=== PATIENT | female | born 1935 | race Caucasian/White ===

== ENCOUNTER 2017-10-12 20:47 | Outpatient (CLI) | payer MEDICARE ==
[~2017-10-12] VITALS: Ht 162.6 cm; Wt 73.0 kg
--- NOTE | ~2017-10-12 | OP ---
PATIENT NAME: TATYANA HAQUE MEDICAL RECORD: [id number] :33 LOCATION:D.[facility]I ADMISSION DATE: SURGEON: CUONG PAUL MD DATE OF OPERATION: 10/12/2017 PROCEDURES: 1. Left heart catheterization. 2. Selective coronary angiography. 3. Left ventriculogram. INDICATION: ST segment elevation myocardial infarction. PROCEDURE IN DETAIL: After informed consent was obtained and after a detailed description of risks, benefits as well as alternative therapies, the patient elected to proceed with angiogram and heart catheterization. The right femoral area was prepped and draped in normal sterile fashion. The right femoral artery was cannulated via modified Seldinger technique with placement of 6-Uzbek sheath. All catheters exchanged through this sheath. FINDINGS: Left ventriculogram was performed in standard 30-degree PURVIS view, reveals good cardiac wall motion throughout all segments. Overall ejection fraction estimated 60%. SELECTIVE CORONARY ANGIOGRAPHY: Left main, left anterior descending, left circumflex, and right coronary are all smooth-walled vessels with no angiographic evidence of coronary artery disease. OVERALL IMPRESSION: 1. No angiographic evidence of coronary artery disease. 2. Normal left heart pressures. 3. Normal left ventricular systolic function. ST segment elevation myocardial infarction was most likely from the chronic atrial fibrillation and primary thrombotic event that was resolved with heparin and Plavix given in the Emergency Room. At this time, she has smooth-walled vessels with no angiographic evidence of coronary artery disease. Continue antithrombin therapy for the atrial fibrillation. TRANSINT:[id number] Voice Confirmation ID: [id number] DOCUMENT ID: [id number] CUONG PAUL MD at 1711 CC: [id number] DICTATION DATE: 10/12/172140 COMMERCIAL REAL ESTATE ASSOCIATE: 10/12/17 [address] [facility] 10/13/17 [place] [address]
--- NOTE | ~2017-10-12 | HEMODYNAMI ---
PATIENT:TATYANA HAQUE MEDICAL RECORD: [id number] : 33 LOCATION:[facility] ADMISSION DATE: 10/12/17 Generatedon:10/12/201722:27 Patient name: TATYANA HAQUE Patient #: [id number] SSN: : 1935 Date of study: 10/12/2017 Page: Of Hemodynamic Procedure Report Patient Data Patient Demographics Procedure consent was obtained First Name: TATYANA Gender: Female Last Name: SHABNAM : 1935 Patient #: [id number] Age: 81 year(s) Race: Unknown Additional ID: [id number] Contact details Address: [address] [place] [address] State: [place] City: [facility] Zip code: [address] Past Medical History Allergies Allergen Reaction Date Comments Reported Other allergy 10/12/2017 ASA Admission Admission Data Admission Date: 10/12/2017 Admission Time: 19:54 Procedure Procedure Types Cath Procedure Diagnostic Procedure LHC LHC w/Coronaries Procedure Description Procedure Date Procedure Date: 10/12/2017 Procedure Start Time: 21:32 Procedure End Time: 21:41 Procedure Staff Name Function David Murphy MD Performing Physician Hayde Chew RT Monitor Julia Eubanks RT Scrub Nancy Marie RN Nurse Procedure Data Cath Procedure Fluoroscopy Diagnostic fluoroscopy Total fluoroscopy Time: 0.9 time: 0.9 min min Diagnostic fluoroscopy Total fluoroscopy dose: 335 dose: 335 mGy mGy Contrast Material Contrast Material Type Amount (ml) Isovue 300 45 Entry Location Entry Primary Successful Side Size Upsize Upsize Entry Closure Succes sful Closure Location (Fr) 1 (Fr) 2 (Fr) Remarks Device Remarks Femoral Right 6 Fr Exoseal artery Short Estimated blood loss: 10 ml Diagnostic catheters Device Type Used For End Catheter Placement MULTIPACK Pigtail 5 Fr Procedure catheter MULTIPACK JL 4.0 5Fr Procedure catheter MULTIPACK 3DRC 5Fr Procedure catheter Procedure Complications No complications Procedure Medications Medication Administration Route Dosage Oxygen NC 2 l/min Lidocaine 2% added to field 20 Heparin Flush Bag added to field 2 bags (1000units/500ml NS) 0.9% NaCl I.V. 100 ml/hr Versed I.V. 1 mg Fentanyl I.V. 50 mcg Lopressor I.V. 5 mg Versed I.V. 1 mg Fentanyl I.V. 50 mcg Hemodynamics Rest Heart Rate: 99 (bpm) Snapshots Pre Cath Intra NCS Post Cath Vital Signs Time Heart Resp SPO2 etCO2 NIBP (mmHg) Rhythm Pain Sedation Rate (ipm) (%) (mmHg) Status Level (bpm) 21:27:00 115 17 94 50.5 135/80(97) A-Fib 0 (11) 10(A) , No pain 21:31:44 111 12 95 29.7 128/89(109) A-Fib 0 (11) 10(A) , No pain 21:36:29 118 21 94 37.9 138/85(97) A-Fib 0 (11) 9(A) , No pain 21:41:10 109 19 95 38.6 124/76(96) A-Fib 0 (11) 10(A) , No pain Medications Time Medication Route Dose Verified Delivered Reason Notes Effe ctiveness by by 21:25:35 Oxygen NC 2 David Myriamie used for l/min Katherine Marie RN procedure 21:25:42 Lidocaine 2% added 20ml David Hernandez for local to vial Katherine Murphy MD anesthetic field 21:25:48 Heparin Flush added 2 David David used for Bag to bags Katherine Murphy MD procedure (1000units/500ml field NS) 21:25:56 0.9% NaCl I.V. 100 David Cruz Per ml/hr Katherine Marie RN physician 21:29:07 Versed I.V. 1 mg David Cruz for Katherine Marie RN sedation 21:29:12 Fentanyl I.V. 50 David Cruz for mcg Katherine Marie RN sedation 21:32:24 Versed I.V. 1 mg David Cruz for Katherine Marie RN sedation 21:32:27 Fentanyl I.V. 50 David Cruz for mcg Katherine Marie RN sedation 21:37:48 Lopressor I.V. 5 mg David Cruz Per Katherine Marie RN physician Procedure Log Time Note 21:11:01 Buffie Marie RN sent for patient. Start room use. 21:11:03 Time tracking: Regular hours (M-F 7:00 - 5:00) 21:11:09 Plan of Care:Hemodynamics will remain stable., Cardiac rhythm will remain stable., Comfort level will be maintained., Respiratory function will remain adequate., Patient/ family verbilizes understanding of procedure., Procedure tolerated without complication., Recovers from procedure without complications.. 21:16:42 Patient received from ED to CCL 1 Alert and oriented. Tansferred to table in Supine position. 21:16:44 Warm blankets applied, and avani hugger turned on for patient comfort. 21:16:44 Correct patient and procedure confirmed by team. 21:16:46 Signed procedure consent form obtained from patient. 21:16:47 ECG and BP/O2 sat monitors applied to patient. 21:25:35 Oxygen 2 l/min NC was administered by Nancy Marie RN; used for procedure; 21:25:42 Lidocaine 2% 20ml vial added to field was administered by David Murphy MD; for local anesthetic; 21:25:48 Heparin Flush Bag (1000units/500ml NS) 2 bags added to field was administered by David Murphy MD; used for procedure; 21:25:56 0.9% NaCl 100 ml/hr I.V. was administered by Nancy Marie RN; Per physician; 21:26:02 Vital chart was started 21:26:46 Baseline sample Acquired. 21:26:56 Full Disclosure recording started 21:27:02 H&P Date Dictated: 10/12/2017 Emergent; H&P N/A. 21:27:05 Pre-procedure instructions explained to patient. 21:27:08 Family in waiting room. 21:27:15 Patient NPO since Lunch. 21:27:30 Patient allergic to Other allergyASA 21:27:34 Is the patient allergic to Iodine/contrast media? No. 21:27:36 Was the patient premedicated? Yes 21:27:37 Is patient on blood thinner?Yes 21:27:40 ACC The patient was administered the following blood thiners within the last 24 hours: ACCPlavix 21:27:43 Patient diabetic? No. 21:27:44 If diabetic: On Metformin? No 21:27:49 Snore? Yes 21:27:50 Sleep apnea? No 21:27:57 Dentures? Yes tight 21:28:15 Patient pain scale 3/10 ?. 21:28:24 IV patent on arrival in right hand, right forearm with 0.9% NaCl at [facility] 21:28:28 Lab results completed and on chart. 21:28:32 Right groin area was prepped with chlora-prep and draped in sterile fashion 21::34 Alarms reviewed by RKate N. ::34 Sharps counted by scrub and verified by R.N. 21::35 Physician paged 21::37 Physician arrived 21::44 --------ALL STOP TIME OUT------ ::46 Final Timeout: patient, procedure, and site verified with staff and physician. All members of the team are in agreement. 21:28:54 Right groin site verified by team. 21:29:00 Sedation plan: IV Moderate Sedation Medication:Versed, Fentanyl 21:29:07 Versed 1 mg I.V. was administered by Nancy Marie RN; for sedation; 21:29:09 Use device set Femoral Dx 21:29:12 Fentanyl 50 mcg I.V. was administered by Nancy Marie RN; for sedation; 21:32:24 Versed 1 mg I.V. was administered by Nancy Marie RN; for sedation; 21:32:24 Procedure started. 21:32:27 Fentanyl 50 mcg I.V. was administered by Nancy Marie RN; for sedation; :32:34 Local anesthetic to right femoral artery with Lidocaine 2% by David Murphy MD.INITIAL ACCESS ONLY 21:32:49 A 6 Fr Short sheath was inserted into the Right Femoral artery 21:32:56 J wire advanced. 21:33:01 ACIST Syringe (79611) opened to sterile field. 21:33:01 Bag Decanter () opened to sterile field. 21:33:02 Medline Cath Pack ([id number]) opened to sterile field. 21:33:02 DIAGNOSTIC WIRE .035 260cm J wire (081067) opened to sterile field. 21:33:04 ACIST Manifold (12271) opened to sterile field. 21:33:04 DIAGNOSTIC Multipack 5Fr catheter set (IP8375) opened to sterile field. 21:33:05 ACIST Hand Control (17072) opened to sterile field. 21:33:06 Tegaderm 4 x 4 (1626W) opened to sterile field. 21:33:07 PERCUTANEOUS ENTRY 19GA needle opened to sterile field. 21:33:10 SHEATH 6Fr Prelude ([id number]) opened to sterile field. 21:33:11 INFLATOR Merit BasixCompak (PU3416) opened to sterile field. 21:33:11 CHOICE PT Extra Support 182cm wire ([id number]) opened to sterile field. 21:33:29 A MULTIPACK Pigtail 5 Fr catheter was advanced over the wire and used for Procedure. 21:33:33 LV gram done using PURVIS 21:33:37 Catheter removed. 21:34:04 A MULTIPACK JL 4.0 5Fr catheter was advanced over the wire and used for Procedure. 21:34:57 Catheter removed. 21:35:28 A MULTIPACK 3DRC 5Fr catheter was advanced over the wire and used for Procedure. 21:35:33 Catheter removed. 21:35:46 EXOSEAL 6Fr (EX600) opened to sterile field. 21:36:27 Sheath removed intact; hemostasis achieved with Exoseal to the Right Femoral artery. 21:37:48 Lopressor 5 mg I.V. was administered by Nancy Marie RN; Per physician; 21:39:48 Procedure ended.(Physican Out) 21:40:08 Fluoroscopy time 00.90 minutes. 21:40:14 Fluoroscopy dose: 335 mGy 21:40:14 Flurop Dose total: 335 21:40:17 Contrast amount:Isovue 300 45ml. 21:40:19 Sharps counted by scrub and verified by R.N. 21:40:23 Insertion/operative site no bleeding no hematoma. 21:40:27 Post right femoral artery:stable 21:40:29 Post Procedure Pulses reassessed and unchanged 21:40:32 Post-procedure physical assessment completed. ASA score P 2 - A patient with mild systemic disease as per David Murphy MD. 21:40:37 Post procedure rhythm: unchanged. 21:40:40 Estimated blood loss: 10 ml 21:40:43 Post procedure instruction explained to patient.Patient verbalizes understanding. 21:40:51 Procedure and supply charges have been captured, reviewed, submitted and are correct. 21:41:12 Procedure Complication : No complications 21:41:16 Vital chart was stopped 21:41:16 See physician's report for complete and final results. 21:41:20 Report given to Pre/Post Procedure Room. 21:41:27 Patient transfered to ICU with Bed. 21:41:38 Procedure ended. 21:41:38 Full Disclosure recording stopped 22:02:10 Pt with warmed blankets and bear hugger in place for comfort. rt groin dressing c/d/i, no bleeding or hematoma noted. awaiting bed assignment. atrial fib on the cm. will cont to monitor. 22:19:51 pt cont with rt groin dressing c/d/i no bleeding or hematoma noted. pt in no distress. sips of water tolerated without difficulty. pt will be transfered via bed to cv icu 1. Device Usage Item Name Manufacture Quantity Catalog Number Hospital Part Current Mini mal Lot# / Charge Number Stock Stock Serial# Code ACIST Acist 1 51716 035930 240329 315776 20 Syringe Medical (65451) Systems Inc Bag Decanter Microtek 1 2001S 908810 21874 479155 5 (2001S) Medical Inc. Medline Cath Cardinal 1 [id number] 082458 37100 735005 5 Pack Health ([id number]) DIAGNOSTIC [facility] [place] 1 429391 252645 437830 422457 30 WIRE .035 260cm J wire (981389) ACIST Acist 1 44486 607974 534972 159921 5 Manifold Medical (63980) Systems Inc DIAGNOSTIC Cardinal 1 HQ5999 499415 21151 739306 30 Multipack Health 5Fr catheter set (EN6006) ACIST Hand Acist 1 45816 206232 473596 107746 5 Control Medical (36343) Systems Inc Tegaderm 4 x 3M 1 1626W 319441 837255 254923 5 4 (1626W) PERCUTANEOUS Cook Medical 1 G50625 662656 617936 5 ENTRY 19GA needle SHEATH 6Fr Merit 1 [id number] 590878 263408 874734 5 Prelude Medical ([id number]) INFLATOR Merit 1 CV0909 473807 349250 622536 15 [facility] Medical BasixCompak (YH9619) CHOICE PT [place] 1 [id number] 205120 877198 438740 5 Extra Scientific Support 182cm wire ([id number]) MULTIPACK Cardinal 1 187155 5 Pigtail 5 Fr Health catheter MULTIPACK JL Cardinal 1 058410 5 4.0 5Fr Health catheter MULTIPACK Cardinal 1 698504 5 3DRC 5Fr Health catheter EXOSEAL 6Fr Cardinal 1 EX600 859803 700402 277249 10 (EX600) Health Signature Audit [place] Stage Time Signature Unsigned Intra-Procedure 10/12/2017 Hayde Chew 10:27:05 PM RT(R) Signatures Monitor : Hayde Chew Signature : RT Date : Time : [address] [address]
--- NOTE | ~2017-10-12 | HP ---
PATIENT: TATYANA ANDREWS MEDICAL RECORD: [id number] ACCOUNT: [id number] LOCATION:[facility] : 33 ADMISSION DATE: 10/13/17 HISTORY AND PHYSICAL EXAMINATION ADMITTING DIAGNOSES: 1. Acute inferior myocardial infarction. 2. Coronary artery disease. 3. Atrial fibrillation, chronic. HISTORY OF PRESENT ILLNESS: Ms. Andrews has a known history of ischemic heart disease. She has a history of atrial fibrillation followed by Dr. Landon, for which she is on Eliquis and atenolol. She presents with chest pain. She was actually at the hospital visiting a friend, began having chest pain. The chest pain worsened and she came to the ER. Her EKG is compatible with an acute inferior myocardial infarction. REVIEW OF SYSTEMS: The patient reports easy bruising but reports no swollen glands. The patient reports no fever, no night sweats, no significant weight gain, no significant weight loss. No significant exercise tolerance. The patient reports no dry eyes, no irritation, no vision change. Patient reports no difficulty hearing and no ear pain. Patient reports no frequent nose bleeds or nose and sinus problems. Patient reports on arm pain on exertion. No shortness of breath while lying down. No history of heart murmur. Patient reports no cough, no wheezing or coughing up blood. Patient reports no abdominal pain, no vomiting. Normal appetite. No diarrhea and not vomiting blood. No nausea and no constipation. Patient reports no incontinence. No difficulty urinating. No hematuria. No increased frequency. Patient reports no muscle aches. No weakness, no arthralgias, no back pain. No swelling of the extremities. Patient reports no abnormal mole, no jaundice, no rashes. Reports no loss of consciousness. No weakness and no numbness. No seizures, dizziness, or headaches. The patient reports no depression, no sleep disturbance, feeling safe in a relationship and no alcohol abuse. Patient reports on fatigue. Reports no runny nose or sinus pressure. No itching, no hives, and no frequent sneezing. PHYSICAL EXAMINATION: GENERAL APPEARANCE: Well-nourished, well-developed, appears stated age. Level of distress, comfortable. PSYCHIATRIC: Mental status, alert, normal affect. Orientation, oriented to time, place and person. EYES: Lids and conjunctiva, noninjected. No discharge, no pallor. ENT: Lips, teeth, gums, normal dentition. Oropharynx, no cyanosis, no pallor. NECK: Carotid arteries, bilateral normal upstroke, no bruits, no thrills. JUGULAR VEINS: No jugular venous pressure or distention. CERVICAL LYMPH NODES: Nontender, nonenlarged. THYROID: Not enlarged. Nontender. No nodules. LUNGS: Respiratory effort, unlabored. CHEST: Normal curvature. No thoracic deformity. No chest wall tenderness. Percussion, resonant. Auscultation, clear. No wheezes, no rales, no rhonchi. CARDIOVASCULAR: Precordial exam, nondisplaced. No heaves or pericardial thrills. Rate and rhythm, regular. Heart sounds, normal S1, normal S2. No S3, no gallop, no rub. Systolic murmur, not heard. Diastolic murmur, not heard. EXTREMITIES: No cyanosis, no edema. Peripheral pulses, full and equal in all extremities, except as noted. No bruits appreciated. HISTORY AND PHYSICAL [id number] TATYANA ANDREWS ABDOMEN: Soft, nondistended. Normal aorta. No bruit. Nontender. No masses. Liver, nontender, no hepatomegaly. Spleen, nontender, no splenomegaly. MUSCULOSKELETAL: No joint tenderness. No joint swelling. No erythema. NEUROLOGICAL: Normal gait, normal strength, normal tone. SKIN: Warm and dry. IMPRESSION: Acute inferior myocardial infarction. We will proceed with cardiac catheterization. Further care depends upon findings of the catheterization. TRANSINT:[id number] Voice Confirmation ID: [id number] DOCUMENT ID: [id number] CUONG PAUL MD at 1711 CC: [id number] DICTATION DATE: 10/12/172048 SEPARATOR OPERATOR: 10/12/172142 [facility] 10/13/17 [place] [id number]
[2017-10-12 20:26] LABS: BASOPHILS 0.5 % (0-2); EOSINOPHILS 0.9 % (0-7); HEMATOCRIT 41.1 % (36.0-48.0); HEMOGLOBIN 14.9 g/dL (12-16); IMMATURE GRANULOCYTES 0.2 % (0-5); LYMPHOCYTES 36.8 % (15-50); MCH 37.4 pg (26.0-34.0); MCHC 36.3 g/dL (31.0-37.0); MCV 103.3 fL (80.0-100.0); MONOCYTES 7.3 % (2-11); NEUTROPHILS 54.3 % (40-80); RBC 3.98 10x6/uL (4.00-5.40); RDW 21.8 % (11.5-14.5); WBC 5.5 10x3/uL (4.8-10.8)
[2017-10-12 20:39] LABS: INR 1.78 (0.85-1.17); PROTIME 20.1 SECONDS (11.6-15.0)
[~2017-10-12 20:47] MED LIST: CALCIUM CITRATE1 TAB PO; MULTIPLE VITAMI1 TA1 PO; OCTIVITE PO; SYSTANE 0.3-0.4%5 ML EACH EYE; TENORMIN25 MG PO; VITAMIN D31000 UNI2 PO
[2017-10-12 20:48] LABS: APTT 37.5 SECONDS (22.8-39.4)
[2017-10-12 20:55] LABS: ALBUMIN 3.8 g/dL (3.4-5.0); ALKALINE PHOSPHATASE 38 U/L (46-116); ALT (SGPT) 24 U/L (10-68); BILIRUBIN - TOTAL 1.06 mg/dL (0.2-1.3); CALC OSMOLALITY 270 mosm/kg (275-300); CALCIUM 9.3 mg/dL (8.5-10.1); CARBON DIOXIDE 25.6 mmol/L (21.0-32.0); CHLORIDE - SERUM 94 mmol/L (98-107); CREATININE - SERUM 1.1 mg/dL (0.6-1.3); POTASSIUM - SERUM 3.6 mmol/L (3.5-5.1); PROTEIN - SERUM 7.7 g/dL (6.4-8.2); SODIUM 132 mmol/L (136-145); UREA NITROGEN 19 mg/dL (7-18); eGFR NON AFRICAN AMERICAN 50 mL/min (90-120)
[2017-10-12 20:59] LABS: GLUCOSE 169 mg/dL (74-106)
[2017-10-12 21:00] LABS: CHOL - HDL RATIO 3.2 ratio (2.3-4.1); CHOLESTEROL, TOTAL 105 mg/dL (0-200); CKMB 2.4 U/L (0.0-3.6); CREATINE KINASE 113 UL (21-215); HDL CHOLESTEROL 33 mg/dL (32-96); LDL CHOLESTEROL 49 mg/dL (0-100); LDL-HDL RATIO 1.5 ratio (1.5-3.5); TRIGLYCERIDE 115 mg/dL (30-200); TROPONIN-I 0.027 ng/mL (0.000-0.060)
[2017-10-12 21:05] LABS: PLATELET COUNT 115 10x3/uL (130-400)
[2017-10-12 23:00] VITALS: BP 142/78
[2017-10-12] MEDS ORDERED: HYDROCHLOROTH12.5 M1 (23:23)
[2017-10-13] VITALS (13 sets, daily range): BP systolic 110–145; BP diastolic 43–88; Ht 162.6 cm; Wt 73.0 kg
[2017-10-13 01:36] LABS: APPEARANCE CLEAR (CLEAR); BILIRUBIN NEGATIVE (NEGATIVE); COLOR YELLOW (YELLOW); GLUCOSE NEGATIVE (NEGATIVE); KETONE NEGATIVE (NEGATIVE); NITRITE NEGATIVE (NEGATIVE); PROTEIN NEGATIVE (NEGATIVE); SPECIFIC GRAVITY 1.015 (1.005-1.020); UROBILINOGEN NORMAL (NORMAL)
[2017-10-13 01:37] LABS: BACTERIA FEW /hpf (NONE SEEN); EPITHELIAL CELLS 0-5 /hpf (0-5); RED CELLS - URINE 0-5 /hpf (0-5); WHITE CELLS - URINE 0-5 /hpf (0-5)
[2017-10-13] MEDS ORDERED: BAYER CHEWABLE81 MG PO (10:21)
== END 2017-10-13 13:06 | disposition home or self-care (01) ==
LOC: D.CVICU 20:47 → EDSTATUS 22:30 → D.CVICU 22:31 → D.CATH 22:31 → D.CVICU 10-13 12:23
PROVIDERS: Family Medicine
DX: I21.19 ST elevation (STEMI) myocardial infarction involving other coronary artery of inferior wall (principal); I48.2 Chronic atrial fibrillation; I25.10 Atherosclerotic heart disease of native coronary artery without angina pectoris; Z01.812 Encounter for preprocedural laboratory examination

== ENCOUNTER 2019-02-04 19:34 | Inpatient (IN) | payer MEDICARE ==
[~2019-02-04] VITALS: Ht 162.6 cm; Wt 79.5 kg
[~2019-02-04 19:34] MED LIST changes: +BAYER CHEWABLE81 MG PO; +HYDROCHLOROTH12.5 M1
[2019-02-04] MEDS ORDERED: ELIQUIS5 MG PO (19:45)
[2019-02-04] MEDS ORDERED: AMIODARONE HCL200 MG PO (19:45)
[2019-02-04] MEDS ORDERED: CALCIUM 500 +1 EAC3 PO (19:46)
[2019-02-04] MEDS ORDERED: GLUCOSAMINE HC500 MG PO (19:46)
[2019-02-04] MEDS ORDERED: TESSALON PERLE100 MG PO (19:46)
[2019-02-04] MEDS ORDERED: HYDROXYUREA500 MG PO (19:48)
[2019-02-04] MEDS ORDERED: MOBIC7.5 MG PO (19:48)
[2019-02-04] MEDS ORDERED: [UNRECOGNIZED DRUG - OTHER] PO (19:48)
[2019-02-04] MEDS ORDERED: KLOR-CON 1010 MEQ PO (19:49)
[2019-02-04] MEDS ORDERED: TOPROL XL100 MG PO (19:49)
[2019-02-04] MEDS ORDERED: ZOFRAN ODT4 MG/UDTAB PO (19:49)
[2019-02-04 20:27] LABS: BASOPHILS 0.1 % (0-2); EOSINOPHILS 0.2 % (0-7); HEMATOCRIT 36.5 % (36.0-48.0); HEMOGLOBIN 13.3 g/dL (12-16); IMMATURE GRANULOCYTES 0.5 % (0-5); LYMPHOCYTES 7.3 % (15-50); MCH 35.9 pg (26.0-34.0); MCHC 36.4 g/dL (31.0-37.0); MCV 98.6 fL (80.0-100.0); MEAN PLATELET VOLUME 9.9 fL (7.4-10.4); MONOCYTES 7.4 % (2-11); NEUTROPHILS 84.5 % (40-80); PLATELET COUNT 121 10x3/uL (130-400); RDW 12.3 % (11.5-14.5); WBC 18.4 10x3/uL (4.8-10.8)
[2019-02-04 20:30] VITALS: BP 119/46
[2019-02-04 20:50] LABS: ALBUMIN 2.8 g/dL (3.4-5.0); ANION GAP 11.9 mmol/L (8-16); BILIRUBIN - TOTAL 0.8 mg/dL (0.2-1.3); CALCIUM 8.2 mg/dL (8.5-10.1); CARBON DIOXIDE 26.6 mmol/L (21.0-32.0); CREATININE - SERUM 1.8 mg/dL (0.6-1.3); POTASSIUM - SERUM 5.5 mmol/L (3.5-5.1); PROTEIN - SERUM 6.1 g/dL (6.4-8.2)
[2019-02-04 20:51] LABS: TROPONIN-I 0.027 ng/mL (0.000-0.060)
[2019-02-04 22:08] VITALS: BP 140/43
[2019-02-04 22:30] VITALS: BP 130/43
--- NOTE | 2019-02-05 00:56 | NUR ---
RECEIVED PT TO FLOOR FROM ER VIA STRETCHER. PT ORIENTED BUT KEPT FALLING ASLEEP DURING ADMISSION. HISTORY AND HOME MEDS REVIEWED. PT WAS GIVEN KAYEXELATE IN ER. HAD ACCIDENT IN BED OF LOOSE WATERY STOOL. ASSISTED UP TO BEDSIDE COMMODE AND CHANGED BED AND GOWN. TELEMETRY IS SR. COMPLETE ASSESSMENT PER FLOW-SHEET. RESERVE LEFT ARM DUE TO HISTORY OF MASTECTOMY AND LYMPNODE REMOVAL. NO OTHER NEEDS. PT IN BED RESTING QUIETLY. CALL LIGHT IN REACH.
[2019-02-05 02:17] VITALS: BP 156/41; BMI 28.5
[2019-02-05 05:18] VITALS: BP 104/31
[2019-02-05 06:16] LABS: BASOPHILS 0.1 % (0-2); EOSINOPHILS 0.2 % (0-7); HEMATOCRIT 35.5 % (36.0-48.0); HEMOGLOBIN 12.6 g/dL (12-16); IMMATURE GRANULOCYTES 0.2 % (0-5); LYMPHOCYTES 4.5 % (15-50); MCH 35.8 pg (26.0-34.0); MCHC 35.5 g/dL (31.0-37.0); MEAN PLATELET VOLUME 9.9 fL (7.4-10.4); MONOCYTES 9.4 % (2-11); NEUTROPHILS 85.6 % (40-80); PLATELET COUNT 111 10x3/uL (130-400); RBC 3.52 10x6/uL (4.00-5.40); RDW 12.5 % (11.5-14.5); WBC 19.1 10x3/uL (4.8-10.8)
[2019-02-05 06:22] LABS: MCV 100.9 fL (80.0-100.0)
[2019-02-05 06:45] LABS: ANION GAP 15.5 mmol/L (8-16); CALCIUM 7.4 mg/dL (8.5-10.1); CARBON DIOXIDE 21.7 mmol/L (21.0-32.0); CREATININE - SERUM 1.6 mg/dL (0.6-1.3)
[2019-02-05 06:49] LABS: POTASSIUM - SERUM 4.2 mmol/L (3.5-5.1)
[2019-02-05 08:38] VITALS: BP 144/90
--- NOTE | 2019-02-05 09:03 | NUR ---
PT ALERT X 4. DISPLEASED WITH BREAKFAST. BREATH SOUNDS CLEAR BILAT. TELEMETRY IN PLACE. IV TO RIGHT AC, PATENT, DRESSING CDI. BED LOW, CALL LIGHT IN REACH. NO OTHER NEEDS AT THIS TIME.
[2019-02-05 12:40] VITALS: BP 120/51
[2019-02-05 17:20] VITALS: BP 136/62
[2019-02-05 20:00] VITALS: BP 126/64
[2019-02-05 23:29] LABS: APPEARANCE CLEAR (CLEAR); BILIRUBIN NEGATIVE (NEGATIVE); COLOR YELLOW (YELLOW); GLUCOSE NEGATIVE (NEGATIVE); KETONE NEGATIVE (NEGATIVE); NITRITE NEGATIVE (NEGATIVE); PROTEIN 2+ mg/dL (NEGATIVE); UROBILINOGEN NORMAL (NORMAL)
[2019-02-05 23:31] LABS: BACTERIA FEW /hpf (NEGATIVE); EPITHELIAL CELLS 0-5 /hpf (0-5); RED CELLS - URINE 0-5 /hpf (0-5)
[2019-02-06 04:00] VITALS: BP 121/55
[2019-02-06 06:22] LABS: BASOPHILS 0.1 % (0-2); EOSINOPHILS 0.5 % (0-7); HEMATOCRIT 31.3 % (36.0-48.0); HEMOGLOBIN 11.5 g/dL (12-16); IMMATURE GRANULOCYTES 0.3 % (0-5); LYMPHOCYTES 3.2 % (15-50); MCH 36.3 pg (26.0-34.0); MCHC 36.7 g/dL (31.0-37.0); MEAN PLATELET VOLUME 9.8 fL (7.4-10.4); MONOCYTES 10.7 % (2-11); NEUTROPHILS 85.2 % (40-80); RBC 3.17 10x6/uL (4.00-5.40); RDW 12.4 % (11.5-14.5); WBC 15.6 10x3/uL (4.8-10.8)
[2019-02-06 06:51] LABS: ANION GAP 13.6 mmol/L (8-16); CALCIUM 7.7 mg/dL (8.5-10.1); CARBON DIOXIDE 22.4 mmol/L (21.0-32.0); CREATININE - SERUM 1.3 mg/dL (0.6-1.3)
[2019-02-06 06:54] LABS: MCV 98.7 fL (80.0-100.0); PLATELET COUNT 137 10x3/uL (130-400)
[2019-02-06 08:52] VITALS: BP 153/54
--- NOTE | 2019-02-06 11:02 | NUR ---
NOTIFIED MURRAY TUCKER AND STUDENT HOISTING ENGINE OPERATOR PATIENT 15 RUNS OF VTACH.
[2019-02-06 12:03] VITALS: BP 151/67
[2019-02-06 13:31] VITALS: Ht 162.6 cm; Wt 79.5 kg
[2019-02-06 17:02] VITALS: BP 147/60
--- NOTE | 2019-02-06 18:16 | NUR ---
PAGED PHYSICIAN ABOUT IV ANTIBIOTICS. LET MURRAY KNOW EARLIER BUT ONLY NATHAN WAS DC.
--- NOTE | 2019-02-06 18:45 | NUR ---
DR. HERNÁNDEZ STATED HE HAD A CONSULT PLACED FOR SURGERY TO PLACE CVL AND IF NOT DONE TONIGHT TO GIVE ROCEPHIN IM X ONE DOSE TONIGHT. NOTIFIED NIGHT NURSE.
--- NOTE | 2019-02-06 19:10 | NUR ---
PATIENT ALERT AND ORIENTED X4. PATIENT SITTING UP IN CHAIR. PATIENT TOLD THAT CENTRAL LINE WILL POSSIBLY BE PLACED TONIGHT. IF CENTRAL LINE IS NOT PLACED PATIENT WILL RECIEVE 1 GRAM ROCEFIN IM. PATIENT CHAIR IN LOCKED POSITION. ROOM AIR. PATIENT CALL LIGHT AND BEDSIDE TABLE IN REACH.
[2019-02-06 20:34] VITALS: BP 151/78
[2019-02-07 00:42] VITALS: BP 151/64
[2019-02-07 04:52] VITALS: BP 158/52
[2019-02-07 06:05] LABS: BASOPHILS 0.3 % (0-2); EOSINOPHILS 1.5 % (0-7); HEMATOCRIT 32.4 % (36.0-48.0); HEMOGLOBIN 11.5 g/dL (12-16); IMMATURE GRANULOCYTES 0.6 % (0-5); LYMPHOCYTES 5.2 % (15-50); MCHC 35.5 g/dL (31.0-37.0); MCV 98.5 fL (80.0-100.0); MEAN PLATELET VOLUME 9.8 fL (7.4-10.4); MONOCYTES 12.3 % (2-11); NEUTROPHILS 80.1 % (40-80); RBC 3.29 10x6/uL (4.00-5.40); RDW 12.5 % (11.5-14.5)
[2019-02-07 06:18] LABS: PLATELET COUNT 181 10x3/uL (130-400); WBC 10.6 10x3/uL (4.8-10.8)
[2019-02-07 06:37] LABS: ANION GAP 15.4 mmol/L (8-16); CALCIUM 7.8 mg/dL (8.5-10.1); CARBON DIOXIDE 22.1 mmol/L (21.0-32.0); CREATININE - SERUM 1.1 mg/dL (0.6-1.3); POTASSIUM - SERUM 4.5 mmol/L (3.5-5.1)
--- NOTE | 2019-02-07 08:00 | NUR ---
PATIENT SITTING UP IN CHAIR WITH NO COMPLAINTS OR SIGNS OF DISTRESS. CALL LIGHT WITHIN REACH.
[2019-02-07 08:57] VITALS: BP 145/77
--- NOTE | 2019-02-07 11:00 | NUR ---
PATIENT IN BED WITH EYES CLOSED RESTING QUIETLY. CALL LIGHT WITHIN REACH.
[2019-02-07] MEDS ORDERED: LEVAQUIN750 MG PO (12:04)
[2019-02-07] MEDS ORDERED: TOPROL XL100 MG PO (12:05)
[2019-02-07 12:11] VITALS: BP 117/55
--- NOTE | 2019-02-07 12:45 | MORECARE ---
CASE MANAGEMENT DISCHARGE SUMMARY PATIENT: TATYANA HAQUE UNIT: [id number] ADM DATE: 02/04/19 AGE: 83 : 34 SEX: F ROOM/BED: D.2227 AUTHOR: LOUANN HUTCHISON PHYSICIAN: REFERRING PHYSICIAN: SHANNON DWYER MD DATE OF SERVICE: 02/07/19 Discharge Plan Patient Name: [facility]ATYANA HAQUE [facility] [facility] 1935 Planned Disposition: Home Anticipated Discharge Date: Discharge Date: Expected LOS: Initial Reviewer: [email or web address] Initial Review Date: 02/07/2019 Generated: 02/07/19 1:45 pm DCPIA - Discharge Planning Initial Assessment Updated by [email or web address]: Radha Montes on 02/07/19 12:43 pm * Is the patient Alert and Oriented? Yes * Preadmission Environment Home Alone * ADLs Independent * Other Equipment CPAP * List name and contact numbers for known caregivers / representatives who currently or will assist patient after discharge: EDMUND [phone] * Community resources currently utilized None * Additional services required to return to the preadmission environment? No * Can the patient safely return to the preadmission environment? Yes * Has this patient been hospitalized within the prior 30 days at any hospital? No Patient Name: TATYANA HAQUE Page [phone] at 1245 All edits/amendments must be made on the electronic document DICTATION DATE: 02/07/[address] DEPUTY CLERK: IOANA 02/07/19 1245 RPT#: [id number] DC DATE: STATUS: ADM IN [facility] [address] [place] [address] END OF REPORT
--- NOTE | 2019-02-07 14:49 | NUR ---
PATIENT RECIEVED DC INSTRUCTIONS. VERBALIZED UNDERSTANDING. EXPLAINED TO PATIENT TO TO COMMERCIAL DESIGNER LEVAQUIN AND START TOMORROW. FRIEND AT BEDSIDE. TELE REMOVED AND TAKEN BACK TO MED II. AWAITING WC FOR DC.
--- NOTE | 2019-02-08 17:01 | MORECARE ---
CASE MANAGEMENT DISCHARGE SUMMARY PATIENT: TATYANA HAQUE UNIT: [id number] ADM DATE: 02/04/19 AGE: 83 : 34 SEX: F ROOM/BED: D.2227 AUTHOR: LOUANN HUTCHISON PHYSICIAN: REFERRING PHYSICIAN: SHANNON DWYER MD DATE OF SERVICE: 02/08/19 Discharge Plan Patient Name: TATYANA HAQUE Facility: [facility]:[place] : 1935 Planned Disposition: Home Anticipated Discharge Date: Discharge Date: 02/07/2019 Expected LOS: 0 Initial Reviewer: [email or web address] Initial Review Date: 02/07/2019 Generated: 02/08/19 6:00 pm DCPIA - Discharge Planning Initial Assessment Updated by [email or web address]: Radha Montes on 02/07/19 12:43 pm * Is the patient Alert and Oriented? Yes * Preadmission Environment Home Alone * ADLs Independent * Other Equipment CPAP * List name and contact numbers for known caregivers / representatives who currently or will assist patient after discharge: EDMUND, * Community resources currently utilized None * Additional services required to return to the preadmission environment? No * Can the patient safely return to the preadmission environment? Yes * Has this patient been hospitalized within the prior 30 days at any hospital? No Coverage Notice Reviewer: [email or web address] Rachel Montes Notice Issued Date-Time: 02/07/2019 12:52 Notice Type: IM Discharge Notice Notice Delivered To: Patient Relationship to Patient: Rheumatology Nurse Name: Delivery Method: HAND - Hand Delivered Lisa Days: Prior Verbal Notification: Recipient Understood Notice: Yes Recipient Signature: Yes Med Rec Note Co-signed by Attending: Coverage Notice Comment: Last DP export: 02/07/19 11:45 a Patient Name: TATYANA HAQUE Page [id number] at 1701 All edits/amendments must be made on the electronic document DICTATION DATE: 02/08/191699 JUNIOR HIGH MATH TEACHER: IOANA 02/08/191699 RPT#: [id number] DC DATE:02/07/19 STATUS: DIS IN [facility] [address] [facility] [place] [address] END OF REPORT
--- NOTE | 2019-02-09 09:14 | EC ---
PATIENT:TATYANA HAQUE DATE OF SERVICE: 02/04/19 SEX: F MEDICAL RECORD: [id number] DATE OF : 33 LOCATION:[id number] AGE OF PATIENT: 83 ADMISSION DATE: 02/04/19 REFERRING PHYSICIAN: INTERPRETING PHYSICIAN: CUONG PAUL MD ECHOCARDIOGRAM REPORT ECHO CHARGES 4 ECHO COMPLETE Date: 02/07/19 CLINICAL DIAGNOSIS: CHF ECHOCARDIOGRAPHIC MEASUREMENTS (adult normal given) AC root (d.<3.7cm) 2.7 cm LV Septum d (<1.2 cm> 1.9 cm Valve Excursion 1.5 cm LV Septum (systole) 2.0 cm Left Atria (s.<4.0cm> 5.2 cm LVPW d(<1.2cm) 1.0 cm RV (d.<2.3cm) 2.7 cm LVPW (sytole) 1.1 cm LV diastole(<5.6CM) 5.1 cm MV E-F(>70mm/sec) cm LV systole 3.3 cm LVOT Diameter 2.0 cm MV exc.(>10mm) cm Est.ejection fraction (50-75%) % DOPPLER: LVIT cm/sec A 50 cm/sec E 103 cm/sec LA cm/sec RVSP 48.6 mmHg LVOT 100 cm/sec AOP1/2T m/s Asc. Ao 187 cm/sec RVOT 58 cm/sec RA cm/sec PA 96 cm/sec AV Gradient Peak 14.0 mmHg AV Mean 7.0 mmHg AV Area 1.9 cm MV Gradient Peak 6.7 mmHg MV Mean 1.6 mmHg MV Area cm COMMENTS: Weekend Receptionist: Sarahi LUBIN Publicity Director: Kita Cortes TAPE# PACS Pericardial Effusion N DATE OF SERVICE: 02/07/2019 FINDINGS: 1. Left ventricular chamber size is within normal limits. Left ventricular systolic function is normal at 55%. 2. Left atrium is enlarged at 5.2 cm. Right atrium and right ventricular chamber sizes are as well mildly dilated. 3. Valvular structures have normal structure and motion. 4. Doppler interrogation reveals trace aortic insufficiency, moderate mitral regurgitation, mild tricuspid regurgitation, no other valvular insufficiency or ECHOCARDIOGRAM REPORT [id number] TATYANA HAQUE stenosis. Pulmonary systolic pressure is estimated at 49 mmHg. 5. No evidence of pericardial effusion or left ventricular thrombus. TRANSINT:[id number] Voice Confirmation ID: [id number] DOCUMENT ID: [id number] CUONG PAUL MD at 0914 CC: [id number] DICTATION DATE: 02/07/19 1334 LEAD CARGO MOVER: 02/07/19 2247 DIS IN 02/07/19 [facility] [address] [id number]
== END 2019-02-07 14:53 | disposition home or self-care (01) | DRG 871 ==
LOC: D.ER 19:34 → D.MS 22:01
PROVIDERS: Emergency Medicine; Internal Medicine Nephrology; ADMIT Family Medicine; ATTEND Family Medicine
DX: A41.51 Sepsis due to Escherichia coli [E. coli] (principal); J18.9 Pneumonia, unspecified organism; E87.1 Hypo-osmolality and hyponatremia; N17.9 Acute kidney failure, unspecified; D53.9 Nutritional anemia, unspecified; E87.5 Hyperkalemia; Z95.0 Presence of cardiac pacemaker